=== PATIENT | female | born 1955 | race Asian ===

== ENCOUNTER 2018-11-20 07:13 | Day surgery (SDC) | payer OTHER ==
[~2018-11-20] VITALS: Ht 147.3 cm; Wt 67.5 kg
[~2018-11-20 07:13] MED LIST: AMLODIPINE DAILY; IBUPROFEN PRN; [UNRECOGNIZED DRUG - OTHER]
[2018-11-20 08:05] VITALS: Ht 147.3 cm; Wt 67.5 kg
[2018-11-20 09:03] VITALS: BP 119/71; PULSE 77; RESP 18
[2018-11-20] MEDS ORDERED: MIDAZOLAM 1 MG/ML 2 ML INJ ONE ×2 (10:07)
[2018-11-20] MEDS ORDERED: FENTAnyl 50 MCG/ML VIAL ONE (10:07)
[2018-11-20 10:20] VITALS: BP 104/60; RESP 16
--- NOTE | 2018-11-20 20:28 | CONS ---
DATE OF ADMISSION: 11/20/2018 DATE OF CONSULTATION: PATIENT NAME: MANJU CHRISTINE TYPE OF CONSULTATION: Preoperative gastroenterology. I thank you very much for this kind referral. HISTORY OF PRESENT ILLNESS: Ms. Manju Christine is a 63-year-old female patient who has been referr ed to me for further evaluation of gastrointestinal tract bleeding. The patient was admitted to [facility] 3 months ago with acute blood loss with severe anemia needing blood transfusions. Th e patient underwent endoscopy and colonoscopy, and the colonoscopic examination was inadequate becaus e of poor preparation. The patient denies any rectal bleeding now. There is no past history of pept ic ulcer disease, inflammatory bowel disease or colon neoplasm. Her appetite has been good, and she is not losing any weight. The patient has been taking ibuprofen for arthritis. No history of gallst ones or liver disease. Her appetite has been good, and she is not losing any weight. She has hypert ension. Not a diabetic. No heart disease, lung problem or kidney disease. SOCIAL HISTORY: Nonsmoker. No alcohol abuse. FAMILY HISTORY: No family history of gastrointestinal tract neoplasm. The patient is status post caldwell rgery for tubal ligation. SOCIAL HISTORY: Nonsmoker. No alcohol abuse. FAMILY HISTORY: No family history of gastrointestinal tract neoplasm. ALLERGIES: NO DRUG ALLERGIES. MEDICATIONS: 1. Amlodipine. 2. Ibuprofen. PHYSICAL EXAMINATION: GENERAL: She is 4 feet 10 inches tall and weighs 147 pounds. HEART: Normal heart sounds. LUNGS: Clear. ABDOMEN: Soft, no masses. Normal bowel sounds. NEUROLOGIC: Normal neurological examination. IMPRESSION: 1. Acute gastrointestinal tract bleeding needing blood transfusion. 2. The patient had endoscopy and colonoscopy done in another hospital and the exam was inadequate be cause of the poor prep. 3. She had abdominal CT scan done and it was normal. 4. Hypertension. 5. The patient takes ibuprofen for arthritis. PLAN: 1. CBC and CMP. 2. Repeat endoscopy and colonoscopy for further evaluation. 3. If the endoscopy and colonoscopy do not reveal any bleeding lesion, the patient will need capsule endoscopy of the small bowel to look for any bleeding lesion in the small bowel. The procedure and possible complications are well explained to the patient and the family. They unde rstand and consent to the procedures. I thank you once again. With warmest personal regards, Dictated By: SANTOSH LUGO/ABELARDO Conf#: [id number] [facility]#: [id number]
== END 2018-11-20 16:24 | disposition home or self-care (01) ==
LOC: GIL 07:13
PROVIDERS: ATTEND Internal Medicine Gastroenterology
DX: K29.50 Unspecified chronic gastritis without bleeding (principal); B96.89 Other specified bacterial agents as the cause of diseases classified elsewhere; K57.30 Diverticulosis of large intestine without perforation or abscess without bleeding; K64.8 Other hemorrhoids; I10 Essential (primary) hypertension; M19.90 Unspecified osteoarthritis, unspecified site
CPT/HCPCS: 43239; 45378; 88305; 88312; J2250; J3010; Z7610